=== PATIENT | female | born 1950 | race Caucasian/White ===

== ENCOUNTER 2024-09-08 07:42 | Day surgery (SDC) | payer MEDICARE, OTHER ==
[~2024-09-08 07:42] MED LIST: Sodium Chloride 0.9% 10 ML Syringe FLUSH PRN; Sodium Chloride 0.9% 10 ML Syringe FLUSH SCH; fentaNYL 100 MCG/2 ML SDV IVPUSH PRN
[2024-09-08] MEDS: Lactated Ringers 1,000 ML IV SCH (08:00)
[2024-09-08] MEDS ORDERED: EPINEPHrine 1 MG/ML SDV ONE (08:08)
[2024-09-08] MEDS ORDERED: Bupivacaine 0.5% 30 ML SDV ONE (08:09)
[2024-09-08] MEDS ORDERED: fentaNYL 100 MCG/2 ML SDV IVPUSH PRN (09:07)
[2024-09-08] MEDS ORDERED: Ondansetron 4 MG/2 ML SDV IVPUSH PRN (09:07)
[2024-09-08] MEDS ORDERED: Dexamethasone 4 MG/ML 5 ML MDV ONE (09:14)
[2024-09-08] MEDS ORDERED: Sugammadex Sodium 200 MG/2 ML VIAL IV ONE (09:14)
[2024-09-08] MEDS ORDERED: Lidocaine 2% 5 ML SDV ONE (09:14)
[2024-09-08] MEDS ORDERED: Ketorolac 30 MG/ML SDV ONE (09:14)
[2024-09-08] MEDS ORDERED: fentaNYL 100 MCG/2 ML SDV ONE (09:14)
[2024-09-08] MEDS ORDERED: Ondansetron 4 MG/2 ML SDV ONE (09:14)
[2024-09-08] MEDS ORDERED: Propofol 200 MG/20 ML SDV ONE (09:14)
[2024-09-08] MEDS ORDERED: propofoL 500 MG/50 ML 50 ML ONE (09:17)
[2024-09-08] MEDS ORDERED: Rocuronium 50 MG/5 ML Vial ONE (09:30)
[2024-09-08] MEDS ORDERED: ePHEDrine 50 MG/ML SDV ONE (09:35)
[2024-09-08] MEDS ORDERED: ceFAZolin 2 GM Vial ONE (09:35)
[2024-09-08] MEDS ORDERED: dexmedeTOMIDine HCl 200 MCG/2 ML SDV ONE (09:51)
[2024-09-08] MEDS ORDERED: Lactated Ringers 1,000 ML ONE (09:59)
[2024-09-08] MEDS: HYDROmorphone 0.5 MG/0.5 ML Syringe IVPUSH PRN (11:30)
[2024-09-08] MEDS: oxyCODONE 5 MG Tab PO PRN (12:17)
== END 2024-09-08 12:55 | disposition home or self-care (01) ==
LOC: JD.SDS 07:42
PROVIDERS: ATTEND Surgery
DX: K40.90 Unilateral inguinal hernia, without obstruction or gangrene, not specified as recurrent (principal); K21.9 Gastro-esophageal reflux disease without esophagitis; E78.00 Pure hypercholesterolemia, unspecified; F41.9 Anxiety disorder, unspecified; E03.9 Hypothyroidism, unspecified; Z79.890 Hormone replacement therapy; Z79.899 Other long term (current) drug therapy
CPT/HCPCS: 49650; A9270; J0171; J0665; J0690; J2003; J2405; J2704; J3010; J7120; J1100; J1885; J3490

== ENCOUNTER 2025-01-17 14:38 | Emergency (ER) | payer MEDICARE, OTHER | END 2025-01-17 18:28 | disposition home or self-care (01) | LOC: JD.ED 14:38 | DX: M54.50 Low back pain, unspecified (principal); R32 Unspecified urinary incontinence; Z88.8 Allergy status to other drugs, medicaments and biological substances; Z79.899 Other long term (current) drug therapy | CPT/HCPCS: 72148; 72148-26; 81001; 99283; 99284 ==